=== PATIENT | female | born 1940 | race Caucasian/White ===

== ENCOUNTER 2019-10-02 13:45 | Outpatient (CLI) | payer MEDICARE, SELFPAY ==
--- NOTE | ~2019-10-02 | DEXA_ITS ---
Bone Density Report Name: Alejandra Ding Age: 79 Sex: Female Ethnicity: White Date of : 1940 Indication: postmenopausal; height loss; Referring Provider: SIDNEY*, TREV Billy Study: Bone densitometry was performed. Exam Date: October 02, 2019 Accession number: [id number] Bone Density: Region BMD T-score Z-score Classification AP Spine (L1-L4) 0.896 -1.4 1.3 Osteopenia Femoral Neck (Left) 0.601 -2.2 0.0 Osteopenia Total Hip (Left) 0.688 -2.1 -0.1 Osteopenia Total Hip Bilateral Avg 0.695 -2.0 -0.1 Osteopenia Femoral Neck (Right) 0.564 -2.6 -0.3 Osteoporosis Total Hip (Right) 0.700 -2.0 0.0 Osteopenia World Health Organization criteria for BMD impression classify patients as: Normal (T-score at or above -1.0), Osteopenia (T-score between -1.0 and -2.5), or Osteoporosis (T-score at or below -2.5). 10-year Fracture Risk: FRAX not reported because: Some T-score for Spine Total or Hip Total or Femoral Neck at or below -2.5 Clinical Information Provided by Patient: Smokes Has used the following medications: Vitamin D Patient maximum height was 62 Menopause Age: 53 No regular weight bearing exercise Drinks caffeinated beverages Onset of menses at age 13 Number of children 2 Impression: The patient has osteoporosis, based on the Right Femoral Neck T-score. The patient has risk factors, including: smoking. Discussion: INCREASED RISK OF FRACTURE. BONE DENSITY IS UNDESIRABLY LOW AT ONE OR MORE SKELETAL SITES, CONSISTENT WITH POSTMENOPAUSAL OSTEOPOROSIS. This patient's lowest T-score meets the World Health Organization's (WHO) criteria for osteoporosis at one or more sites (T-score -2.5 or below). In untreated patients, the risk of osteoporotic fracture increases approximately two-fold for each 1.0 SD decrease in T-score. Low bone density is not the only risk factor for fracture; also consider factors such as patient's age, frailty or poor health, risk of falling, risk of injury, previous osteoporotic fracture, family history of osteoporosis, cigarette smoking, low body weight, etc. Not everyone with low bone mineral density has osteoporosis; osteomalacia and other metabolic bone disorders should also be considered. Patients who have osteoporosis should be evaluated for specific diseases and conditions (secondary causes) that may cause or contribute to bone loss. The [place] [employer]ocrinologists (AACE) and National Osteoporosis Foundation (NOF) recommend pharmacologic intervention for all postmenopausal women whose T-score is in this range. The patient should follow a healthful lifestyle (good nutrition with adequate calcium and vitamin D, and appropriate weight-bearing exercise). Follow-Up: Consider a repeat BMD and Vertebral Fracture Assessment (VFA) exam in 2 years or sooner if medically
--- NOTE | ~2019-10-02 | MM_ITS ---
EXAMINATION: MM screening edith BI w yosef HISTORY: Screening mammogram TECHNIQUE: Craniocaudal and mediolateral oblique 3-D tomosynthesis images were obtained and synthetic 2-D images were generated. CAD analysis was submitted and interpreted. COMPARISON: 06/20/2017, 05/30/2013 bilateral digital screening mammogram examinations BREAST PARENCHYMAL COMPOSITION: The breasts are heterogeneously dense, which may obscure small masses . FINDINGS: A biopsy marker is present on the left. There are bilateral benign calcifications. There is no evidence of suspicious mass, calcification, or architectural distortion to suggest malignancy in either breast. There has been no suspicious interval change. IMPRESSION: 1. No mammographic evidence of malignancy. 2. Recommend routine screening mammography in one year. BI-RADS Category 2: Benign finding(s). Reviewed, dictated and finalized at location A. INFRASTRUCTURE CONSULTANT
== END 2019-10-02 13:46 | disposition home or self-care (01) ==
LOC: ANHIMG 13:48
PROVIDERS: PCP Internal Medicine; Visit Provider Internal Medicine
DX: Z12.31 Encounter for screening mammogram for malignant neoplasm of breast (principal); M81.0 Age-related osteoporosis without current pathological fracture; M85.89 Other specified disorders of bone density and structure, multiple sites
CPT/HCPCS: 77063; 77067; 77080

== ENCOUNTER 2021-05-05 02:21 | Day surgery (SDC) | payer MEDICARE, SELFPAY ==
[2021-04-22 12:49] VITALS: BMI 24.5
--- NOTE | 2021-05-04 12:18 | WPDANESEPPF ---
Anes - Initial Pre Proc Eval Procedure: Operation Date: 05/05/21 08:30 Proposed Procedures p Screening Colonoscopy - Slim Atwood MD Date/Time: 05/04/21 12:18 Surgeon: Slim Atwood MD Pre Op Diagnosis: hx of colon polyps Patient Data Age: 80 Gender: F Height: 1.52 m Weight: 57 kg Allergies Allergy/AdvReac Type Severity Reaction Status Date / Time azithromycin Allergy Mild Rash Verified 05/05/21 07:14 Penicillins Allergy Mild Diarrhea Verified 05/05/21 07:14 Home Medications Medication Instructions Recorded Confirmed Type acetaminophen-codeine 1 tablet PO BID PRN 04/22/21 05/05/21 History acyclovir 400 mg PO DAILY 04/22/21 05/05/21 History alprazolam 1 mg PO Q6-8H PRN 04/22/21 05/05/21 History doxycycline monohydrate 100 mg PO DAILY 04/22/21 05/05/21 History estradiol 1 applic VAGINAL WEEKLY 04/22/21 05/05/21 History levothyroxine [Synthroid] 100 mcg PO DAILY 04/22/21 05/05/21 History loteprednol etabonate 1 drp OPHTHALMIC (EYE) DAILY 04/22/21 05/05/21 History nitrofurantoin monohyd/m-cryst 100 mg PO DAILY 04/22/21 05/05/21 History olopatadine 1 drp OPHTHALMIC (EYE) DAILY 04/22/21 05/05/21 History pravastatin 40 mg PO DAILY 04/22/21 05/05/21 History sodium fluoride-pot nitrate 1 applic DENTAL DAILY 04/22/21 05/05/21 History Patient hx anesthesia problems: none Family hx anesthesia problems: none PMFSH Past Medical History Medical History (Updated 05/04/21 @ 15:41 by Slim Atwood MD) Diverticulosis Hypothyroidism Multiple sclerosis Osteoporosis Sarcoidosis Surgical History Surgical History (Updated 05/04/21 @ 12:19 by Saad Hernandez DO) History of appendectomy Family History Family History (Updated 04/17/14 @ 07:13 by DOCTOR UNKNOWN) Father Family history of heart disease in male family member before age 55 Mother Family history of heart disease in male family member before age 55 Other Cerebrovascular accident Diabetes mellitus Hypertension Social History Social History Years smoked: 50 Smoking status: Current every day smoker Tobacco type: cigarettes Alcohol intake: never Substance use: never Substance use type: does not use Living arrangements: with family Spiritual care concerns: No Anes - Eval Final PreProcedure Day of Procedure 05/04/21 12:18 Patient weight: normal Heart: regular rate and rhythm Lungs: clear to auscultation and normal air movement Airway: Mallampati scale class II Neurological: alert and oriented Last oral intake: >/= 8 hours ASA classification: III Emergent: no Anesthetic plan: proceed Anesthesia type and monitoring: general GIVS and standard monitoring Informed Consent: The patient's anesthetic plan and its attendant risks and benefits were discussed with the patient/family/POA. Questions were solicited and answers provided to the satisfaction of the patient/family/POA.
--- NOTE | 2021-05-04 15:40 | PM.HPGS ---
History of Present Illness History of Present Illness Consent: Risks, benefits, and alternatives have been discussed and questions answered. Patient agrees to proceed with procedure. Chief complaint: hx of colon polyps Narrative: Alejandra Ding is a 80 year old female referred for colon cancer screening. She has had polyps removed in the past Review of Systems Review of Systems: All systems reviewed & are unremarkable except as noted in HPI and below PMFSH Past Medical History Medical History Diverticulosis Hypothyroidism Multiple sclerosis Osteoporosis Sarcoidosis Surgical History Surgical History History of appendectomy Family History Family History Father Family history of heart disease in male family member before age 55 Mother Family history of heart disease in male family member before age 55 Other Cerebrovascular accident Diabetes mellitus Hypertension Social History Social History Years smoked: 50 Smoking status: Current every day smoker Tobacco type: cigarettes Alcohol intake: never Substance use: never Substance use type: does not use Living arrangements: with family Spiritual care concerns: No Meds Home Medications and Allergies Home Medications Medication Instructions Recorded Confirmed Type acetaminophen-codeine 1 tablet PO BID PRN 04/22/21 05/05/21 History acyclovir 400 mg PO DAILY 04/22/21 05/05/21 History alprazolam 1 mg PO Q6-8H PRN 04/22/21 05/05/21 History doxycycline monohydrate 100 mg PO DAILY 04/22/21 05/05/21 History estradiol 1 applic VAGINAL WEEKLY 04/22/21 05/05/21 History levothyroxine [Synthroid] 100 mcg PO DAILY 04/22/21 05/05/21 History loteprednol etabonate 1 drp OPHTHALMIC (EYE) DAILY 04/22/21 05/05/21 History nitrofurantoin monohyd/m-cryst 100 mg PO DAILY 04/22/21 05/05/21 History olopatadine 1 drp OPHTHALMIC (EYE) DAILY 04/22/21 05/05/21 History pravastatin 40 mg PO DAILY 04/22/21 05/05/21 History sodium fluoride-pot nitrate 1 applic DENTAL DAILY 04/22/21 05/05/21 History Allergies Allergy/AdvReac Type Severity Reaction Status Date / Time azithromycin Allergy Mild Rash Verified 05/05/21 07:14 Penicillins Allergy Mild Diarrhea Verified 05/05/21 07:14 Exam Resp: Auscultation: clear to auscultation bilaterally Cardio: Rate: regular rate Rhythm: regular rhythm GI: GI Palp: Yes Soft to palpation and No Tenderness to palpation present (GI) Assessment and Plan Assessment and plan (1) Colon cancer screening: Code(s): Z12.11 - Encounter for screening for malignant neoplasm of colon Status: Acute Assessment and Plan: Colonoscopy with possible biopsy or polypectomy or cautery or injection of substances.
[2021-05-05 07:15] VITALS: BP 144/81; PULSE 87; RESP 16; TEMP 35.6; O2SAT 97
[2021-05-05] MEDS: LACTATED RINGERS 1,000 ML 150 ML IV CONT (07:18)
[2021-05-05 08:15] VITALS: BP 101/46; PULSE 77; RESP 20; O2SAT 99
[2021-05-05 08:25] VITALS: BP 126/54; PULSE 69; RESP 18; O2SAT 99
[2021-05-05 08:35] VITALS: BP 124/65; PULSE 67; RESP 18; O2SAT 100
== END 2021-05-05 08:51 | disposition home or self-care (01) ==
PROVIDERS: PCP Internal Medicine; Visit Provider Internal Medicine Gastroenterology
PROC: 0DJD8ZZ Inspection of Lower Intestinal Tract, Via Natural or Artificial Opening Endoscopic (ICD-10-PCS; CPT 45378; principal; 2021-05-05 08:30)
DX: Z12.11 Encounter for screening for malignant neoplasm of colon (principal); K57.30 Diverticulosis of large intestine without perforation or abscess without bleeding; Z86.010 Personal history of colon polyps; G35 Multiple sclerosis; E03.9 Hypothyroidism, unspecified; M81.0 Age-related osteoporosis without current pathological fracture; D86.9 Sarcoidosis, unspecified; F17.210 Nicotine dependence, cigarettes, uncomplicated
CPT/HCPCS: G0105; J2704; J7120

== ENCOUNTER 2021-08-25 17:17 | Emergency (ER) | payer MEDICARE, SELFPAY ==
--- NOTE | ~2021-08-25 | XR_ITS ---
EXAMINATION: XR hand LT min 3V EXAM DATE: 08/25/2021 19:09 INDICATION: Initial encounter following injury, with pain of the left hand. TECHNIQUE: Left hand frontal, lateral and oblique projections obtained and reviewed. There is no porfirio or study for comparison. FINDINGS: Left metacarpal bones are unremarkable. Possible acute closed posttraumatic nondisplaced fracture at the dorsal aspect of the left radial distal metaphysis. This finding has been indicated, marked on the examination for review, clinical correlation. There is some soft tissue swelling over t he wrist posteriorly. IMPRESSION: Possible nondisplaced left distal radial metaphyseal fracture. Clinical correlation. Reviewed, dictated and finalized at location A. ER AND DRIER IMPRESSION: Possible nondisplaced left distal radial metaphyseal fracture. Cli nical correlation.
[2021-08-25 18:55] VITALS: BP 180/75; PULSE 85; RESP 16; TEMP 35.9; O2SAT 98
[2021-08-25 18:56] VITALS: BP 180/75; PULSE 85; RESP 16; TEMP 35.9; O2SAT 98
--- NOTE | 2021-08-25 18:59 | ED.UPPEXIN ---
HPI - Extremity Injury (Upper) General Chief Complaint: Extremity Injury, Upper Stated Complaint: left wrist pain Time Seen by Provider: 08/25/21 18:59 Source: patient Mode of arrival: ambulatory Limitations: no limitations History of Present Illness HPI narrative: Alejandra Ding is a 81 yo female with history of history of Lynn's, hypothyroid, sarcoidosis, chronic back pain, who [facility] after second fall within the last 10 hours, she does not have any history of this kind of falls. Patient has left wrist injury which appears to be a large hematoma and x-ray has been shot of that wrist. Blood pressure is unusually high for her other than that she appears to not be having any weakness any neurological deficit no asymmetry is an O x4 Related Data Home Medications Medication Instructions Recorded Confirmed acetaminophen-codeine 1 tablet PO BID PRN 04/22/21 05/05/21 acyclovir 400 mg PO DAILY 04/22/21 05/05/21 alprazolam 1 mg PO Q6-8H PRN 04/22/21 05/05/21 estradiol 1 applic VAGINAL WEEKLY 04/22/21 05/05/21 levothyroxine [Synthroid] 100 mcg PO DAILY 04/22/21 05/05/21 loteprednol etabonate 1 drp OPHTHALMIC (EYE) DAILY 04/22/21 05/05/21 nitrofurantoin monohyd/m-cryst 100 mg PO DAILY 04/22/21 05/05/21 olopatadine 1 drp OPHTHALMIC (EYE) DAILY 04/22/21 05/05/21 pravastatin 40 mg PO DAILY 04/22/21 05/05/21 sodium fluoride-pot nitrate 1 applic DENTAL DAILY 04/22/21 05/05/21 lifitegrast [Xiidra] drp 08/25/21 sulfamethoxazole-trimethoprim tablet 08/25/21 Allergies Allergy/AdvReac Type Severity Reaction Status Date / Time azithromycin Allergy Mild Rash Verified 05/05/21 07:14 Penicillins Allergy Mild Diarrhea Verified 05/05/21 07:14 Review of Systems Review of Systems: CONSTITUTIONAL: Denies fever, chills, sweats. EYES: Denies visual changes, redness, discharge. ENT: Denies rhinorrhea, congestion, sore throat, otalgia. CARDIOVASCULAR: Denies chest pain, palpitations, edema. RESPIRATORY: Denies dyspnea, wheezing, cough GASTROINTESTINAL: Denies abdominal pain, nausea, vomiting, diarrhea. GENITOURINARY: Denies dysuria, hematuria, abnormal discharge SKIN: Denies rash or itching. NEUROLOGIC: Denies numbness, or focal weakness. PSYCHIATRIC: Denies anxiety or depression. 2 falls today PMFSH Past Medical History Medical History Diverticulosis Hypothyroidism Multiple sclerosis Osteoporosis Sarcoidosis Surgical History Surgical History History of appendectomy Family History Family History Father Family history of heart disease in male family member before age 55 Mother Family history of heart disease in male family member before age 55 Other Cerebrovascular accident Diabetes mellitus Hypertension Social History Social History Years smoked: 50 Smoking status: Current every day smoker Tobacco type: cigarettes Alcohol intake: never Substance use: never Substance use type: does not use Spiritual care concerns: No Comments At time of signature, I agree with nursing past medical, surgical, social and family history. There is no relevant family history pertinent to the presenting complaint. Exam Narrative: GENERAL: This is a well-nourished, well-developed patient, in mild distress. HEAD: normocephalic, atraumatic. EYES: PERRL. Sclera clear/white. Vision is grossly intact. EARS: External ears normal, Hearing grossly intact. NOSE: External nose normal without nasal discharge, nares without redness, no rhinorrhea. THROAT: Mucous membranes moist, NECK: Neck supple, non-tender CARDIOVASCULAR: Regular rate and rhythm without murmurs, gallops, or rubs. RESPIRATORY: Clear to auscultation. Breath sounds equal bilaterally. No wheezes, rales, or rhonchi. GASTROINTESTINAL: A
== END 2021-08-25 19:35 | disposition short-term general hospital (02) ==
PROVIDERS: Emergency Provider Nurse Practitioner; PCP Internal Medicine
DX: S69.92XA Unspecified injury of left wrist, hand and finger(s), initial encounter (principal); W19.XXXA Unspecified fall, initial encounter; I10 Essential (primary) hypertension; E03.9 Hypothyroidism, unspecified; G35 Multiple sclerosis; M81.0 Age-related osteoporosis without current pathological fracture; D86.9 Sarcoidosis, unspecified; E06.3 Autoimmune thyroiditis; F17.210 Nicotine dependence, cigarettes, uncomplicated
CPT/HCPCS: 73130; 99213; G0463

== ENCOUNTER 2021-08-25 20:13 | Emergency (ER) | payer MEDICARE, SELFPAY ==
--- NOTE | ~2021-08-25 | CT_ITS ---
EXAMINATION: CT brain wo con DATE: 08/26/2021 03:04 INDICATION: Dizziness. 2 falls today. TECHNIQUE: Computed tomography (CT) of the head was performed without intravenous contrast. The mA wa s adjusted according to patient size. Iterative reconstruction technique was employed. Exam dose: 75 6.67 mGy-cm total exam DLP. COMPARISON: 02/08/2016 MRI brain/brainstem FINDINGS: There is nonspecific prominent diminished attenuation of the periventricular and to a lesse r extent subcortical white matter. No intracranial mass lesion or hemorrhage, midline shift or mass effect or subdural or epidural hemat tori is detected. Bilateral carotid siphon internal carotid artery calcification. There is moderate cerebral volume loss. The orbits are unremarkable. No fracture or bone destruction of the cranial vault. There is moderate mucoperiosteal thickening of the right maxillary sinus and patchy opacification of bilateral ethmoid air cells. There is mild soft tissue thickening of both sphenoid sinuses. Normal development and aeration of the mastoid air cells bilaterally. No fracture or bone destruction of the cranial vault. IMPRESSION: Cerebral atherosclerosis Nonspecific diminished attenuation of the periventricular and to lesser extent subcortical white tatiana er Moderate cerebral volume loss No acute intracranial finding or skull fracture Reviewed, dictated and finalized at Location [facility]. Reviewed, dictated and finalized at location A. STOCK ASSOCIATE IMPRESSION: Cerebral atherosclerosis Nonspecific diminished attenuation of the periventricular and to lesser extent subcortical white matter Moderate cerebral volume loss No acute intracranial finding or skull fracture
[2021-08-25 20:52] VITALS: BP 182/70; PULSE 90; RESP 18; TEMP 36.3; O2SAT 98
[2021-08-25 22:29] VITALS: BP 157/96; PULSE 82; O2SAT 96
[2021-08-26 02:06] VITALS: BP 162/87; PULSE 92; O2SAT 94
--- NOTE | 2021-08-26 02:41 | ECG_ITS ---
Measurements Intervals [place] Rate: 86 P: 72 CO: 115 QRS: -5 QRSD: 115 T: -15 QT: 364 QTc: 437 Interpretive Statements SINUS RHYTHM WITH SHORT CO INTERVAL RIGHT BUNDLE BRANCH BLOCK T WAVE ABNORMALITY IN INFERIOR LEADS- CONSIDER ISCHEMIA BASELINE ARTIFACT- I, II, III, AVR, AVL, AVF, V2 ABNORMAL ECG Electronically Signed On 08-26-2021 6:27:59 MINUTE CLERK FOR BASIC TRAFFIC by Jewel Rangel D.O.
[2021-08-26 02:44] VITALS: BP 158/62; PULSE 87; RESP 14; O2SAT 100
--- NOTE | 2021-08-26 02:45 | ED.DIZZY ---
HPI - Dizziness General Chief Complaint: Dizziness Stated Complaint: falls dizziness Time Seen by Provider: 08/26/21 02:41 Source: patient Mode of arrival: ambulatory Limitations: no limitations History of Present Illness HPI Narrative: Patient is an 81-year-old female complaining of dizziness, described as being lightheaded, worse with ambulation and head movement started today but claims that she is feeling better now and her dizziness has resolved. Patient states that she felt dizzy this afternoon caused her to fall twice, denies any LOC, was able to stand up and ambulate after the fall. Patient states that she went to an urgent care earlier this afternoon after falling, had her left hand x-rayed and they told me I just bruised it and that I did not break it . Patient denies any speech or visual disturbance, headache, focal weakness or numbness, chest pain, shortness of breath, abdominal pain, nausea, vomiting, fever or chills. Related Data Home Medications Medication Instructions Recorded Confirmed acetaminophen-codeine 1 tablet PO BID PRN 04/22/21 05/05/21 acyclovir 400 mg PO DAILY 04/22/21 05/05/21 alprazolam 1 mg PO Q6-8H PRN 04/22/21 05/05/21 estradiol 1 applic VAGINAL WEEKLY 04/22/21 05/05/21 levothyroxine [Synthroid] 100 mcg PO DAILY 04/22/21 05/05/21 loteprednol etabonate 1 drp OPHTHALMIC (EYE) DAILY 04/22/21 05/05/21 nitrofurantoin monohyd/m-cryst 100 mg PO DAILY 04/22/21 05/05/21 olopatadine 1 drp OPHTHALMIC (EYE) DAILY 04/22/21 05/05/21 pravastatin 40 mg PO DAILY 04/22/21 05/05/21 sodium fluoride-pot nitrate 1 applic DENTAL DAILY 04/22/21 05/05/21 lifitegrast [Xiidra] drp 08/25/21 sulfamethoxazole-trimethoprim tablet 08/25/21 Allergies Allergy/AdvReac Type Severity Reaction Status Date / Time azithromycin Allergy Mild Rash Verified 08/26/21 02:39 Penicillins Allergy Mild Diarrhea Verified 08/26/21 02:39 Review of Systems Review of Systems: All systems reviewed & are unremarkable except as noted in HPI and below Constitutional: Constitutional: Denies body ache(s), Denies chills, Denies excessive sweating, Denies fatigue, Denies fever(s), Denies headache(s), Denies lethargy, Denies malaise, Denies weakness and Denies weight loss Eyes: Eyes: Denies blurry vision, Denies change in vision and Denies loss of vision ENT: Denies dizziness, Denies ear discharge, Denies headache(s), Denies lip swelling, Denies epistaxis, Denies nasal congestion, Denies neck pain, Denies throat swelling and Denies tongue swelling Cardiovascular: Cardiovascular: Denies chest pain, Denies chest pain at rest, Denies chest pain with activity, Denies diaphoresis, Denies rapid heart rate, Denies edema, Denies irregular heart rhythm, Denies lightheadedness, Denies palpitations, Denies dyspnea and Denies dyspnea on exertion Respiratory: Respiratory: Denies chest congestion, Denies cough, Denies hemoptysis, Denies dyspnea and Denies dyspnea on exertion Gastrointestinal: Gastrointestinal: Denies abdominal pain, Denies melena, Denies hematochezia, Denies diarrhea, Denies nausea, Denies vomiting and Denies hematemesis Musculoskeletal: Musculoskeletal: Denies abnormal gait, Denies neck pain and Denies numbness Comments: is intact Neurologic: Denies Abnormal speech present, Denies abnormal gait, Denies confusion, Denies headache(s), Denies focal weakness, Denies loss of vision, Denies numbness, Denies Other visual disturbances, Denies Sensory deficit (Neuro) and Denies weakness Psychiatric: Psychiatric: Denies confusion, Denies depression, Denies auditory hallucinations, Denies homicidal ideation and Denies suicidal ideation Endocrine: Endocrine: Denies cold intolerance, Denies excessive sweating, Denies fatigue, Denies heat intolerance and Denies palpitations Hematologic/Lymphatic: Hematologic/Lymphatic: Denies easy bleeding and Denies easy bruising Allergic/Immunologic: Allergic/Immunologic: Denies lip swelling, Denies throat swelling and Denies tong
[2021-08-26 03:37] LABS: Basophils Percent Auto 0.5 % (0.2-1.2); Eosinophils Percent Auto 0.3 % (0-4.4); Hematocrit 39.8 % (37.0-47.0); Hemoglobin 13.3 g/dL (12.0-15.0); Immature Granulocyte Absolute 0.02 K/mm3 (0.00-0.031); Immature Granulocyte Percent A 0.3 % (0-0.5); Lymphocytes Percent Auto 16.7 % (18.3-44.2); Mean Corpuscular HGB Conc 33.4 g/dl (32-36); Mean Corpuscular Hemoglobin 32.1 pg (26-34); Mean Corpuscular Volume 96.1 fl (80-100); Mean Platelet Volume 11.1 fl (7.4-10.4); Monocytes Absolute Auto 0.7 K/mm3 (0.1-0.6); Monocytes Percent Auto 10.4 % (2.6-8.5); Neutrophils Absolute Auto 4.7 K/mm3 (1.3-6.7); Neutrophils Percent Auto 71.8 % (45.5-73.1); Platelet Count Result 194 k/mm3 (150-375); Red Blood Count 4.14 M/mm3 (4.2-5.4); White Blood Count 6.6 K/mm3 (4.5-10.0)
[2021-08-26 03:48] LABS: Anion Gap 12 mmol/L (8-16); Blood Urea Nitrogen 22 mg/dL (7-17); Calcium 9.2 mg/dL (8.4-10.2); Carbon Dioxide 23 mmol/L (22-30); Chloride 99 mmol/L (98-107); Estimated CRCL calculation 24 ml/min; Estimated Glomerular Filt Rate 43; Glucose 111 mg/dL (65-110); Potassium 4.5 mmol/L (3.4-5.0); Sodium 134 mmol/L (137-145)
[2021-08-26] MEDS: HYDROcodone/acetaminophen (*CRX) 5-325 MG TABLET 1 TAB PO (03:57)
[2021-08-26 04:00] LABS: Troponin I < 0.012 ng/mL (0.000-0.034)
[2021-08-26 04:25] LABS: Add Urine Microscopic? YES; Appearance Urine Clear (Clear); Bacteria Urine Trace /hpf; Bilirubin Urine Negative (Negative); Blood Urine Negative (Negative); Color Urine Yellow (Yellow); Glucose Urine UA Negative (Negative); Ketones Urine Trace mg/dL (Negative); Leukocyte Esterase Ur Negative LEU/UL (Negative); Mucus Urine Rare /lpf; Nitrate Urine Negative (Negative); Protein Urine 1+ mg/dL (Negative); RBC Urine 0-2 /hpf (0-2); Specific Grav Ur 1.012 (1.001-1.035); Squamous Epithelial Cell Urine Few /hpf (Few); Urobilinogen Urine Negative mg/dL (<2.0); WBC Urine 0-3 /hpf
[2021-08-26 05:34] LABS: EDCOVIDSCREEN Positive (Negative)
[2021-08-26 06:18] VITALS: BP 158/67; PULSE 79; RESP 14; O2SAT 98
[2021-08-26 07:40] VITALS: BP 159/69; PULSE 80; RESP 16; O2SAT 98
== END 2021-08-26 07:42 | disposition short-term general hospital (02) ==
PROVIDERS: Emergency Provider Emergency Medicine; PCP Internal Medicine
DX: U07.1 COVID-19 (principal); S06.5X0A Traumatic subdural hemorrhage without loss of consciousness, initial encounter; F17.210 Nicotine dependence, cigarettes, uncomplicated; K57.90 Diverticulosis of intestine, part unspecified, without perforation or abscess without bleeding; E03.9 Hypothyroidism, unspecified; G35 Multiple sclerosis; W19.XXXA Unspecified fall, initial encounter
CPT/HCPCS: 36415; 70450; 73130; 80048; 81001; 84484; 85025; 87426; 93005; 99285; A9270; C9803

== ENCOUNTER 2021-10-14 11:57 | Outpatient (CLI) | payer MEDICARE, SELFPAY ==
--- NOTE | ~2021-10-14 | PE_ITS ---
EXAMINATION: PET skull to mid thigh DATE: 10/14/2021 14:12 INDICATION: Lung mass. TECHNIQUE: Blood glucose level was 109 mg/dL. 10.861 mCi of 18-fluorodeoxyglucose (18-FDG) was admini stered i.v. Low dose computed tomography (CT) images were acquired from the base of the brain to the proximal thighs for attenuation correction and anatomic localization. Automated exposure control was employed. Dose-length product (DLP) was 292 mGy-cm. Positron emission tomography (PET) images were ac quired in the same distribution. COMPARISON: Chest CT 01/19/2012, neck CT 09/28/12 FINDINGS: Head/neck: There is a 1.8 x 1.3 cm mass in deep right parotid gland with maximum SUV of 5.3. There is increased activity in the pharynx without abnormal CT correlate, likely physiologic. There are no pa thologically enlarged lymph nodes. There is mucosal thickening in the paranasal sinuses. Chest: There is mild scarring at the lung apices. There is a 12 mm nodule in right upper lobe with ma ximum SUV of 2.1. A calcified right lung nodule is consistent with old granulomatous disease. There i s mild atelectasis bilaterally. There is a staple line in left lower lobe. There is mild scarring in the lower lungs. No pleural effusion. Cardiomegaly is noted. There are coronary artery calcifications . No pericardial effusion. There are no pathologically enlarged lymph nodes. Abdomen/pelvis/proximal thighs: The liver, gallbladder, spleen, pancreas, adrenal glands, and kidneys are normal. There are no dilated loops of bowel. There is diverticulosis of the colon without eviden ce of diverticulitis. There are no pathologically enlarged lymph nodes. There is no free intraperiton eal fluid. There is no osseous malignancy. IMPRESSION: 1. 12 mm nodule in right lung upper lobe with maximum SUV of 2.1, increased from 6 mm on 01/19/2012. T he differential diagnosis includes inflammation/infection and low-grade malignancy. Consider CT-guide d biopsy. 2. 1.8 x 1.3 cm mass in deep right parotid gland with increased activity, stable from 09/28/2012, likel y benign. The differential diagnosis includes benign mixed tumor and Warthin tumor. Reviewed, dictated and finalized at location A. NG MACHINE FEEDER IMPRESSION: 1. 12 mm nodule in right lung upper lobe with maximum SUV of 2.1, increased fro m 6 mm on 01/19/2012. The differential diagnosis includes inflammation/infection and low-grade malignancy. Consider CT-guided biopsy. 2. 1.8 x 1.3 cm mass in deep right parotid gland with increased activity, stabl e from 09/28/2012, likely benign. The differential diagnosis includes benign mixe d tumor and Warthin tumor.
[2021-10-14 12:26] LABS: Glucose Point of Care 109 mg/dl (65-105)
== END 2021-10-14 11:58 | disposition home or self-care (01) ==
PROVIDERS: PCP Internal Medicine; Visit Provider Internal Medicine
DX: R91.8 Other nonspecific abnormal finding of lung field (principal); K11.8 Other diseases of salivary glands
CPT/HCPCS: 78815; A9552

== ENCOUNTER 2022-04-23 21:18 | Emergency (ER) | payer MEDICARE, SELFPAY ==
[2022-04-23] VITALS (7 sets, daily range): BP systolic 171–185; BP diastolic 86–87; PULSE 73–88; RESP 16–25; TEMP 36.5; O2SAT 94–100
--- NOTE | ~2022-04-23 | CT_ITS ---
EXAMINATION: CTA brain carotid DATE: 04/23/2022 23:24 INDICATION: Left leg weakness. Dysarthria. TECHNIQUE: Computed tomographic angiography (CTA) of the head was performed without and with 100 mL O mnipaque-350 intravenous contrast. CTA of the neck was performed with intravenous contrast. Automated exposure control and iterative reconstruction technique were employed. The dose-length product was 1 579.66 mGy-cm. Maximum intensity projection and volume rendered 3D-reconstructions were created by yeni curtis technologist on a separate workstation. COMPARISON: Head CT 08/26/2021, neck CT 09/28/2012, PET/CT 10/14/21 FINDINGS: HEAD CTA: There are scattered areas of low attenuation in the cerebral white matter. There is no intr acranial hemorrhage, acute infarction, or abnormal intracranial mass lesion. There is an old infarct in left thalamus. The ventricles are normal in size. There is mucosal thickening in the paranasal sin uses. There are likely changes of ocular lens replacement surgeries. The mastoid air cells are normal . Partially visualized is a 1.8 cm hyperdense, hyperenhancing mass in right parotid gland. The verteb ral arteries are codominant. There is no significant stenosis of basilar artery or the posterior cere bral arteries. There is no significant stenosis of the intracranial internal carotid arteries or ante rior cerebral arteries. There is thrombus and severe stenosis in the M2 segment of left middle cerebr al artery. Anterior communicating artery is normal. The posterior communicating arteries are normal. There is no aneurysm. NECK CTA: There is mild scarring at the lung apices. There is mild emphysema. There is a 12 mm nodule in right lung upper lobe. There are no pathologically enlarged lymph nodes. There is no significant stenosis of the vertebral arteries. There is mild plaque in the proximal internal carotid arteries. T here is 0% stenosis of the proximal right internal carotid artery relative to normal distal artery donnie men diameter (NASCET criteria). There is 0% stenosis of the proximal left internal carotid artery rel ative to normal distal artery lumen diameter. There is moderate cervical spondylosis. IMPRESSION: 1. Thrombus in left M2 middle cerebral artery. 2. 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 3. Extensive nonspecific cerebral white matter disease, which likely represents chronic small vessel ischemic disease. 4. 0% stenosis of the proximal internal carotid arteries relative to normal distal artery lumen diame ters (NASCET criteria). 5. 12 mm nodule in right lung upper lobe suspicious for primary bronchogenic carcinoma, stable from . 6. 1.8 cm right parotid mass, stable from 09/28/2012, which may be a benign mixed tumor or Warthin tumo r. Reviewed, dictated and finalized at location A. IMPRESSION: 1. Thrombus in left M2 middle cerebral artery. 2. 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 3. Extensive nonspecific cerebral white matter disease, which likely represents chronic small vessel ischemic disease. 4. 0% stenosis of the proximal internal carotid arteries relative to normal dis ladi artery lumen diameters (NASCET criteria). 5. 12 mm nodule in right lung upper lobe suspicious for primary bronchogenic ca rcinoma, stable from 10/14/21. 6. 1.8 cm right parotid mass, stable from 09/28/2012, which may be a benign mixed tumor or Warthin tumor.
--- NOTE | ~2022-04-23 | XR_ITS ---
EXAMINATION: XR chest 1V portable DATE: 04/23/2022 22:32 INDICATION: Stroke. TECHNIQUE: A single frontal view of the chest was obtained. COMPARISON: Chest 2 views 06/14/2011, PET CT 10/14/2021 FINDINGS: There is mild atelectasis versus scarring in the mid and lower lung zones. No pleural effus ion or pneumothorax. The heart size is normal. IMPRESSION: 1. Mild atelectasis versus scarring in the mid and lower lung zones. Reviewed, dictated and finalized at location A.
--- NOTE | 2022-04-23 21:43 | ECG_ITS ---
Measurements Intervals [place] Rate: 79 P: 53 UT: 144 QRS: -14 QRSD: 126 T: -17 QT: 385 QTc: 443 Interpretive Statements SINUS RHYTHM RIGHT BUNDLE BRANCH BLOCK BASELINE ARTIFACT- I, II, III, AVR, AVL, AVF, V4-V6 ABNORMAL ECG COMPARED TO ECG 08/26/2021 03:27:35 NO SIGNIFICANT CHANGES Electronically Signed On 04-24-2022 8:30:06 CDT by Jewel Rangel D.O.
[2022-04-23 22:17] LABS: Basophils Absolute Auto 0.1 K/mm3 (0.0-0.1); Basophils Percent Auto 0.6 % (0.2-1.2); Eosinophils Absolute Auto 0.2 K/mm3 (0-0.3); Eosinophils Percent Auto 2.7 % (0-4.4); Hematocrit 39.5 % (37.0-47.0); Hemoglobin 12.9 g/dL (12.0-15.0); Immature Granulocyte Absolute 0.02 K/mm3 (0.00-0.031); Immature Granulocyte Percent A 0.2 % (0-0.5); Lymphocytes Absolute Auto 1.72 K/mm3 (0.9-3.2); Lymphocytes Percent Auto 20.9 % (18.3-44.2); Mean Corpuscular HGB Conc 32.7 g/dl (32-36); Mean Corpuscular Hemoglobin 31.6 pg (26-34); Mean Corpuscular Volume 96.8 fl (80-100); Mean Platelet Volume 11.8 fl (7.4-10.4); Monocytes Absolute Auto 0.7 K/mm3 (0.1-0.6); Monocytes Percent Auto 8.5 % (2.6-8.5); Neutrophils Absolute Auto 5.5 K/mm3 (1.3-6.7); Neutrophils Percent Auto 67.1 % (45.5-73.1); Platelet Count Result 214 k/mm3 (150-375); Red Blood Count 4.08 M/mm3 (4.2-5.4); Red Cell Distribution Width 13.3 % (11.5-14.5); White Blood Count 8.2 K/mm3 (4.5-10.0)
[2022-04-23 22:26] LABS: Alanine Aminotransferase 14 U/L (6-35); Albumin Level 4.1 g/dL (3.5-5.1); Alkaline Phosphatase 60 U/L (38-126); Anion Gap 5 mmol/L (8-16); Aspartate Amino Transferase 34 U/L (14-36); Bilirubin,Total 0.4 mg/dL (0.2-1.3); Blood Urea Nitrogen 24 mg/dL (7-17); Calcium 9.3 mg/dL (8.4-10.2); Carbon Dioxide 29 mmol/L (22-30); Chloride 105 mmol/L (98-107); Estimated Glomerular Filt Rate 60; Glucose 112 mg/dL (65-110); Potassium 3.7 mmol/L (3.4-5.0); Sodium 139 mmol/L (137-145)
[2022-04-23 22:29] LABS: Prothrombin Time 12.9 Seconds (11.1-14.7)
[2022-04-23 22:30] LABS: Partial Thromboplastin Time 22.6 SECONDS (22.3-36.8)
[2022-04-23 22:38] LABS: Troponin I 0.025 ng/mL (0.000-0.034)
--- NOTE | 2022-04-23 22:57 | PC.NURSE ---
Transferred care to DARINEL Serra
[2022-04-23 23:13] LABS: Appearance Urine Clear (Clear); Bilirubin Urine Negative (Negative); Blood Urine Trace-lysed (Negative); Color Urine Yellow (Yellow); Glucose Urine UA Negative (Negative); Ketones Urine Negative (Negative); Leukocyte Esterase Ur Negative LEU/UL (Negative); Nitrate Urine Negative (Negative); Protein Urine 2+ mg/dL (Negative); Specific Grav Ur 1.015 (1.001-1.035); Urobilinogen Urine 0.2 mg/dL (<2.0); pH Urine 7.5 (5.0-9.0)
[2022-04-23 23:27] LABS: Add Urine Microscopic? YES; RBC Urine 0-2 /hpf (0-2); WBC Urine 0-3 /hpf
[2022-04-23] MEDS: ASPIRIN 81 MG CHEWABLE TABLET 324 MG PO (23:59)
[2022-04-24] VITALS: PULSE 73; RESP 20; O2SAT 96
[2022-04-24 00:16] VITALS: PULSE 72; RESP 18; O2SAT 94
--- NOTE | 2022-04-24 00:44 | ED.NEUROSD ---
HPI - Neuro Symptoms/Deficit General Chief Complaint: Neuro Symptoms/Deficit Stated Complaint: slurred speech Time Seen by Provider: 04/23/22 21:37 History of Present Illness HPI Narrative: Patient is an 81-year-old female who presents ER with slurred speech. Symptoms occurred at 1:30 PM according to her . She then took a nap and woke up at 4:30 PM and her speech was worsened. No new upper or lower extremity weakness. No history of CVA. No recent trauma. Denies any additional complaints. Patient has some chronic left lower extremity weakness for which she uses a cane for. There is been no change. Related Data Home Medications Medication Instructions Recorded Confirmed acetaminophen 300 mg-codeine 30 mg 1 tablet PO BID PRN Pain 04/22/21 05/05/21 tablet acyclovir 400 mg tablet 400 mg PO DAILY 04/22/21 05/05/21 alprazolam 1 mg tablet 1 mg PO Q6-8H PRN Anxiety 04/22/21 05/05/21 estradiol 0.01% (0.1 mg/gram) 1 applic vaginal WEEKLY 04/22/21 05/05/21 vaginal cream levothyroxine 100 mcg tablet 100 mcg PO DAILY 04/22/21 05/05/21 (Synthroid) loteprednol etabonate 0.5 % eye 1 drp ophthalmic (eye) DAILY 04/22/21 05/05/21 drops,suspension nitrofurantoin 100 mg PO DAILY 04/22/21 05/05/21 monohydrate/macrocrystals 100 mg capsule olopatadine 0.1 % eye drops 1 drp ophthalmic (eye) DAILY 04/22/21 05/05/21 pravastatin 40 mg tablet 40 mg PO DAILY 04/22/21 05/05/21 sodium fluoride 1.1 %-potassium 1 applic dental DAILY 04/22/21 05/05/21 nitrate 5 % dental paste lifitegrast 5 % eye drops in a drp 08/25/21 dropperette (Xiidra) sulfamethoxazole 800 tablet 08/25/21 mg-trimethoprim 160 mg tablet Allergies Allergy/AdvReac Type Severity Reaction Status Date / Time azithromycin Allergy Mild Rash Verified 08/26/21 02:39 Penicillins Allergy Mild Diarrhea Verified 08/26/21 02:39 Review of Systems Review of Systems: All systems reviewed & are unremarkable except as noted in HPI and below Constitutional: Constitutional: Denies chills and Denies fever(s) ENT: Denies nasal congestion and Denies sore throat Cardiovascular: Cardiovascular: Denies chest pain, Denies rapid heart rate and Denies radiating jaw, neck or arm pain Respiratory: Respiratory: Denies cough, Denies dyspnea and Denies wheezing Gastrointestinal: Gastrointestinal: Denies abdominal pain, Denies nausea and Denies vomiting Neurologic: Denies syncope, Denies headache(s), Denies focal weakness and Denies numbness Comments: Dysarthria PMFSH Past Medical History Medical History Diverticulosis Hypothyroidism Multiple sclerosis Osteoporosis Sarcoidosis Surgical History Surgical History History of appendectomy Family History Family History Father Family history of heart disease in male family member before age 55 Mother Family history of heart disease in male family member before age 55 Other Cerebrovascular accident Diabetes mellitus Hypertension Social History Social History Years smoked: 50 Smoking status: Current every day smoker Tobacco type: cigarettes Alcohol intake: never Substance use: never Substance use type: does not use Spiritual care concerns: No Exam Narrative: GENERAL: Well-appearing, well-nourished, and in no acute distress. HEAD: Normocephalic, atraumatic. EYES: PERRL and EOMI. ENT: Mucous membranes moist. CHEST: Clear to auscultation. No respiratory distress. HEART: Regular rate and rhythm. Normal peripheral pulses. ABDOMEN: Soft, nontender, nondistended. EXTREMITIES: Normal range of motion. No edema. SKIN: Warm, dry, no rash. NEURO: Dysarthria noted. I believe there is also some expressive issues as well. No upper or lower extremity drift. Normal finger-nose testin
[2022-04-24 00:47] VITALS: PULSE 78; RESP 21; O2SAT 96
[2022-04-24 00:55] VITALS: BP 171/84; PULSE 83; RESP 20; TEMP 36.7; O2SAT 96
[2022-04-24 01:11] VITALS: BP 160/74; PULSE 79; RESP 16; O2SAT 97
== END 2022-04-24 01:33 | disposition short-term general hospital (02) ==
PROVIDERS: Emergency Provider Emergency Medicine; PCP Internal Medicine
DX: P91.829 Neonatal cerebral infarction, unspecified side (principal); R29.702 NIHSS score 2; F17.210 Nicotine dependence, cigarettes, uncomplicated; E03.9 Hypothyroidism, unspecified; M81.0 Age-related osteoporosis without current pathological fracture; G35 Multiple sclerosis; D86.9 Sarcoidosis, unspecified
CPT/HCPCS: 36415; 70496; 70498; 71045; 80053; 81001; 84484; 85025; 85610; 85730; 93005; 99285; A9270; Q9967

== ENCOUNTER 2023-03-20 20:25 | Emergency (ER) | payer MEDICARE, SELFPAY ==
--- NOTE | ~2023-03-20 | CT_ITS ---
EXAMINATION: CT chest abdomen pelvis w con DATE: 03/20/2023 22:13 INDICATION: lung mass, transaminitis . TECHNIQUE: Computed tomography (CT) of the chest, abdomen, and pelvis was performed with 100 mL Omnip aque-350 intravenous contrast. Automated exposure control and iterative reconstruction technique were employed. The dose-length product was 444.00 mGy-cm. COMPARISON: X-ray chest, same date; PET/CT 10/14/2021 FINDINGS: CHEST: Thoracic aorta: No significant dilation. Mild intramural thrombus and calcification in the descending aorta. Lung parenchyma and airways: Bibasilar scar. Stable mildly lobulated 12 mm right upper lobe nodule. Thoracic inlet, axillae and chest wall: No thyroid or soft tissue mass. No axillary lymphadenopathy. Mediastinum: No mass. Enlarged pretracheal and right hilar lymph nodes. Heart and pericardium: Normal heart size. No pericardial effusion. Coronary artery calcifications: Mild. Pleura: No effusion or mass. Thoracic bones: No acute osseous finding in the chest. ABDOMEN/PELVIS: Liver: Diffuse fatty infiltration. Biliary/Gallbladder: Gallbladder is normal. No bile duct dilation. Pancreas: No mass or duct dilation. Spleen: Normal. Adrenals:No mass. Kidneys: Mild cortical thinning. Bilateral simple cysts. No suspicious mass, stone, or hydronephrosis . GI tract: Moderate distal esophageal and gastric wall edema. Uncomplicated duodenal diverticulum. Dif fuse mild colonic wall edema. No small or large bowel dilation. Normal appendix. Diverticulosis witho ut diverticulitis. Mesentery/Peritoneum: No ascites, mass, or free air. Retroperitoneum: No mass Atherosclerotic abdominal aortic and/or arterial calcifications. Pelvis: Pelvic organs are within normal limits. 1.6 cm left ovarian cyst. Soft Tissues: Soft tissues and body wall unremarkable. Abdominopelvic bones: No acute osseous finding in the abdomen/pelvis. IMPRESSION: Stable 12 mm right upper lobe pulmonary nodule. Left hilar and mediastinal lymphadenopathy. Esophagitis/gastritis. Hepatic steatosis. Mild colitis, likely on an infectious, inflammatory, or ischemic basis. Reviewed, dictated and finalized at location K.
--- NOTE | ~2023-03-20 | XR_ITS ---
EXAMINATION: XR chest 2V Exam Date/Time: 03/20/2023 20:52 CDT HISTORY: weakness, elev bp, dizziness; smoker Comparison: 04/23/2022, 06/14/2011; PET/CT 10/14/2021;. RESULT: Lines, tubes, and devices: Loop recorder. Lungs and pleura: Senescent change. Linear bilateral scar/atelectasis. No focal consolidation, pneum othorax, or effusion. Redemonstration of the 12 mm right upper lobe pulmonary nodule. Cardiomediastinal silhouette: Stable. Other: No acute osseous or upper abdominal finding. IMPRESSION: No acute cardiopulmonary process. 12 mm right upper lobe pulmonary nodule, likely representing a granuloma or hamartoma or other infect ious/inflammatory nodule, however a low-grade malignancy is not excluded. As mentioned in the prior P ET/CT, consideration could be given to CT-guided biopsy depending on the patient's clinical condition and wishes. Reviewed, dictated and finalized at location K. IMPRESSION: No acute cardiopulmonary process. 12 mm right upper lobe pulmonary nodule, likely representing a granuloma or ham artoma or other infectious/inflammatory nodule, however a low-grade malignancy is not excluded. As mentioned in the prior PET/CT, consideration could be given to CT-guided biopsy depending on the patient's clinical condition and wishes.
[2023-03-20 20:35] VITALS: BP 149/64; PULSE 97; RESP 18; TEMP 36.9; O2SAT 98
--- NOTE | 2023-03-20 20:46 | ECG_ITS ---
Measurements Intervals [place] Rate: 81 P: 69 MD: 149 QRS: -29 QRSD: 126 T: 26 QT: 383 QTc: 447 Interpretive Statements SINUS RHYTHM RIGHT BUNDLE BRANCH BLOCK CANNOT RULE OUT SEPTAL INFARCT, AGE INDETERMINATE ABNORMAL ECG COMPARED TO ECG 04/23/2022 22:07:51 MYOCARDIAL INFARCT FINDING NOW PRESENT Electronically Signed On 03-20-2023 21:31:11 CDT by Jewel Rangel D.O.
--- NOTE | 2023-03-20 21:07 | ED.GENADULT ---
HPI - General Adult General Chief complaint: Weakness <Viktor Bryant MD - Last Filed: 03/20/23 21:09> Stated complaint: FAINT, WEAKNESS <Viktor Bryant MD - Last Filed: 03/20/23 21:09> Time Seen by Provider: 03/20/23 20:39 <Viktor Bryant MD - Last Filed: 03/20/23 21:09> History of Present Illness HPI narrative: Patient is an 82-year-old female who presents ER due to feeling lightheaded. Occurred just prior to arrival and came by EMS. She felt dizzy like she might pass out. She had no chest pain or chest pressure. No racing of the heart. She reports she has been having burning urination for couple weeks and has been feeling lightheaded when she goes from sitting to standing as well. No fevers or chills or sweats. No abdominal discomfort. Feels well at this time. <Viktor Bryant MD - Last Filed: 03/20/23 21:09> Related Data Home medications: Home Medications Medication Instructions Recorded Confirmed estradiol 0.01% (0.1 mg/gram) 1 applic vaginal WEEKLY 04/22/21 05/05/21 vaginal cream levothyroxine 100 mcg tablet 100 mcg PO DAILY 04/22/21 05/05/21 (Synthroid) loteprednol etabonate 0.5 % eye 1 drp ophthalmic (eye) DAILY 04/22/21 05/05/21 drops,suspension olopatadine 0.1 % eye drops 1 drp ophthalmic (eye) DAILY 04/22/21 05/05/21 pravastatin 40 mg tablet 40 mg PO DAILY 04/22/21 05/05/21 sodium fluoride 1.1 %-potassium 1 applic dental DAILY 04/22/21 05/05/21 nitrate 5 % dental paste lifitegrast 5 % eye drops in a drp 08/25/21 dropperette (Xiid) <Viktor Bryant MD - Last Filed: 03/20/23 21:09> Allergies/adverse reactions: Allergies Allergy/AdvReac Type Severity Reaction Status Date / Time azithromycin Allergy Mild Rash Verified 08/26/21 02:39 Penicillins Allergy Mild Diarrhea Verified 08/26/21 02:39 alendronate sodium Allergy Unknown Verified 04/29/22 17:23 [From Fosamax] clindamycin Allergy Unknown Verified 04/29/22 17:23 <Viktor Bryant MD - Last Filed: 03/20/23 21:09> Review of Systems Review of Systems: All systems reviewed & are unremarkable except as noted in HPI and below <Viktor Bryant MD - Last Filed: 03/20/23 21:09> Constitutional: Constitutional: Denies chills, Denies fatigue and Denies fever(s) <Viktor Bryant MD - Last Filed: 03/20/23 21:09> ENT: Denies nasal congestion and Denies sore throat <Viktor Bryant MD - Last Filed: 03/20/23 21:09> Cardiovascular: Cardiovascular: Denies chest pain, Denies rapid heart rate and Denies radiating jaw, neck or arm pain <Viktor Bryant MD - Last Filed: 03/20/23 21:09> Respiratory: Respiratory: Denies cough and Denies dyspnea <Viktor Bryant MD - Last Filed: 03/20/23 21:09> Gastrointestinal: Gastrointestinal: Denies abdominal pain, Denies nausea and Denies vomiting <Viktor Bryant MD - Last Filed: 03/20/23 21:09> Neurologic: Reports dizziness, Denies syncope, Denies focal weakness and Denies numbness <Viktor Bryant MD - Last Filed: 03/20/23 21:09> [facility] Past Medical History Medical History: Medical History Diverticulosis Hypothyroidism Multiple sclerosis Osteoporosis Sarcoidosis <Viktor Bryant MD - Last Filed: 03/20/23 21:09> Surgical History Surgical History: Surgical History History of appendectomy <Viktor Bryant MD - Last Filed: 03/20/23 21:09> Family History Family History: Family History Father Family history of heart disease in male family member before age 55 Mother Family history of heart disease in male family member before age 55 Other Cerebrovascular accident Diabetes mellitus Hypertension <Viktor Bryant MD - Last Filed: 03/20/23 21:09> Social History Social History: Social History (Reviewed 04/30/22
[2023-03-20] MEDS: SODIUM CHLORIDE 0.9% IV 1,000 ML 999 ML IV CONT (21:13)
[2023-03-20 21:21] LABS: Basophils Absolute Auto 0.1 K/mm3 (0.0-0.1); Basophils Percent Auto 0.7 % (0.2-1.2); Eosinophils Absolute Auto 0.2 K/mm3 (0-0.3); Eosinophils Percent Auto 2.1 % (0-4.4); Hematocrit 46.9 % (37.0-47.0); Hemoglobin 15.2 g/dL (12.0-15.0); Immature Granulocyte Absolute 0.01 K/mm3 (0.00-0.031); Immature Granulocyte Percent A 0.1 % (0-0.5); Lymphocytes Absolute Auto 1.86 K/mm3 (0.9-3.2); Lymphocytes Percent Auto 26.2 % (18.3-44.2); Mean Corpuscular HGB Conc 32.4 g/dl (32-36); Mean Corpuscular Hemoglobin 31.1 pg (26-34); Mean Corpuscular Volume 96.1 fl (80-100); Mean Platelet Volume 11.3 fl (7.4-10.4); Monocytes Absolute Auto 0.6 K/mm3 (0.1-0.6); Monocytes Percent Auto 7.7 % (2.6-8.5); Neutrophils Absolute Auto 4.5 K/mm3 (1.3-6.7); Neutrophils Percent Auto 63.2 % (45.5-73.1); Platelet Count Result 244 k/mm3 (150-375); Red Blood Count 4.88 M/mm3 (4.2-5.4); Red Cell Distribution Width 14.8 % (11.5-14.5); White Blood Count 7.1 K/mm3 (4.5-10.0)
[2023-03-20 21:24] LABS: Appearance Urine Cloudy (Clear); Bacteria Urine None Seen /hpf; Bilirubin Urine Negative (Negative); Blood Urine Negative (Negative); Color Urine Yellow (Yellow); Glucose Urine UA Negative (Negative); Ketones Urine Negative (Negative); Leukocyte Esterase Ur 2+ LEU/UL (Negative); Nitrate Urine Negative (Negative); Non Pathogenic Casts 0-2; Protein Urine 1+ mg/dL (Negative); RBC Urine 0-2 /hpf (0-2); Specific Grav Ur 1.008 (1.001-1.035); Squamous Epithelial Cell Urine Few /hpf (Few); Urobilinogen Urine 0.2 mg/dL (<2.0); pH Urine 7.5 (5.0-9.0)
[2023-03-20 21:30] LABS: Alanine Aminotransferase 109 U/L (6-35); Albumin Level 4.5 g/dL (3.5-5.1); Alkaline Phosphatase 604 U/L (38-126); Anion Gap 6 mmol/L (8-16); Aspartate Amino Transferase 116 U/L (14-36); Bilirubin,Total 0.6 mg/dL (0.2-1.3); Blood Urea Nitrogen 23 mg/dL (7-17); Calcium 9.8 mg/dL (8.4-10.2); Carbon Dioxide 31 mmol/L (22-30); Chloride 102 mmol/L (98-107); Estimated CRCL calculation 30 ml/min; Estimated Glomerular Filt Rate 60; Glucose 153 mg/dL (65-110); Potassium 3.7 mmol/L (3.4-5.0); Sodium 139 mmol/L (137-145)
[2023-03-20 21:32] LABS: Add Urine Microscopic? YES
--- NOTE | 2023-03-20 22:05 | PC.NURSE ---
pt off the floor to CT @3089
[2023-03-20 22:09] VITALS: BP 106/84; PULSE 92
[2023-03-20 22:10] VITALS: BP 129/76; BP 131/55; PULSE 100; PULSE 119
--- NOTE | 2023-03-20 23:17 | PC.NURSE ---
pt care transferred to DARINEL Mohan. all questions answered
== END 2023-03-21 00:12 | disposition home or self-care (01) ==
PROVIDERS: Emergency Medicine; Emergency Provider Emergency Medicine; PCP Internal Medicine
DX: R42 Dizziness and giddiness (principal); R91.1 Solitary pulmonary nodule; G35 Multiple sclerosis; E03.9 Hypothyroidism, unspecified; M81.0 Age-related osteoporosis without current pathological fracture; D86.9 Sarcoidosis, unspecified; F17.210 Nicotine dependence, cigarettes, uncomplicated; R82.998 Other abnormal findings in urine; I45.10 Unspecified right bundle-branch block; R94.31 Abnormal electrocardiogram [ECG] [EKG]; K20.90 Esophagitis, unspecified without bleeding; K29.70 Gastritis, unspecified, without bleeding; K76.0 Fatty (change of) liver, not elsewhere classified; K52.9 Noninfective gastroenteritis and colitis, unspecified
CPT/HCPCS: 36415; 71046; 71260; 74177; 80053; 81001; 85025; 87086; 87088; 93005; 96360; 99284; J7030; Q9967

== ENCOUNTER 2025-05-05 13:07 | Emergency (ER) | payer MEDICARE, SELFPAY ==
--- NOTE | ~2025-05-05 | XR_ITS ---
EXAMINATION: XR wrist LT min 3V DATE: 05/05/2025 13:35 INDICATION: Left wrist and distal forearm pain. TECHNIQUE: Posteroanterior, ulnar deviation, oblique, and lateral views of the left wrist were obtained. COMPARISON: 08/25/2021 FINDINGS: Diffuse osteopenia. Bone alignment is normal. Polyarticular osteoarthritis, moderate severity at the triscaphe joint and mild at many of the remaining joints in the visualized left hand and wrist. IMPRESSION: 1. No acute osseous abnormality. Reviewed, dictated and finalized at location A.
--- NOTE | ~2025-05-05 | XR_ITS ---
EXAMINATION: XR humerus LT DATE: 05/05/2025 13:35 INDICATION: Left mid to upper arm pain TECHNIQUE: AP and lateral views of the left humerus were obtained. COMPARISON: None FINDINGS: Alignment is normal. No fracture. Mild acromioclavicular osteoarthritis. Soft tissues are unremarkable. Streaky opacity left lower lung zone which could represent atelectasis or pneumonia. IMPRESSION: 1. No fracture or malalignment. Reviewed, dictated and finalized at location A.
--- NOTE | 2025-05-05 13:09 | ED.UPPEXIN ---
HPI - Extremity Injury (Upper) General Chief Complaint: Extremity Problem,Nontraumatic Stated Complaint: arm pain Time Seen by Provider: 05/05/25 13:09 Source: patient Mode of arrival: ambulatory Limitations: no limitations History of Present Illness HPI narrative: Alejandra is a 84 year old female patient presenting to the clinic today with c/o arm pain x 2-3 days. She reports she fell 4 years ago and injured her arm but she has had no recent injury. States she is having pain to the distal forearm, wrist, and mid humerus. Pain is sharp in nature and nonradiating. Rates pain 6/10. States she takes a daily Tylenol with codeine for pain. History of CVA, sarcoidosis, and multiple sclerosis. Related Data Home Medications ?Medication ?Instructions ?Recorded ?Confirmed ?Last Taken ?Type estradiol 0.01% (0.1 mg/gram) 1 applic vaginal WEEKLY 04/22/21 05/05/21 Unknown History vaginal cream levothyroxine 100 mcg tablet 100 mcg PO DAILY 04/22/21 05/05/21 Unknown History (Synthroid) loteprednol etabonate 0.5 % eye 1 drp ophthalmic (eye) DAILY 04/22/21 05/05/21 Unknown History drops,suspension olopatadine 0.1 % eye drops 1 drp ophthalmic (eye) DAILY 04/22/21 05/05/21 Unknown History pravastatin 40 mg tablet 40 mg PO DAILY 04/22/21 05/05/21 Unknown History sodium fluoride 1.1 %-potassium 1 applic dental DAILY 04/22/21 05/05/21 Unknown History nitrate 5 % dental paste lifitegrast 5 % eye drops in a drp 08/25/21 Unknown History dropperette (Xiidra) acetaminophen 300 mg-codeine 30 mg tablet 05/05/25 Unknown History tablet Allergies Allergy/AdvReac Type Severity Reaction Status Date / Time azithromycin Allergy Mild Rash Verified 05/05/25 13:13 Penicillins Allergy Mild Diarrhea Verified 05/05/25 13:13 alendronate sodium (From Allergy Unknown Verified 05/05/25 13:13 Fosamax) clindamycin Allergy Unknown Verified 05/05/25 13:13 Review of Systems Review of Systems: Pertinent positives per HPI. Patient denies any fever, chills, rash, headache, visual changes, dizziness, cough, runny nose, sore throat, shortness of breath, chest pain, palpitations, nausea, vomiting, diarrhea, constipation, abdominal pain, or any urinary issues. [facility] Past Medical History Medical History Sarcoidosis Hypothyroidism Multiple sclerosis Diverticulosis Osteoporosis Surgical History Surgical History History of appendectomy Family History Family History Father Family history of heart disease in male family member before age 55 Mother Family history of heart disease in male family member before age 55 Other Cerebrovascular accident Diabetes mellitus Hypertension Social History Social History Years smoked: 50 Smoking status: Current every day smoker Tobacco type: cigarettes Alcohol intake: never Substance use: never Substance use type: does not use Living arrangements: with family Spiritual care concerns: No Comments At the time of my signature, I reviewed and agree with the nursing past medical, surgical, social, and family history. There is no relevant family history pertinent to the patient complaint. Exam Narrative: General: Well-developed, well nourished, in no apparent distress Head: Normocephalic, atraumatic. Cardio: Regular rate and rhythm, s1 and s2 normal, no murmur appreciated. Resp: Clear to auscultation bilaterally, no rhonchi, rales, wheezing or rubs. Musculoskeletal: No deformity, tender to palpation over the left mid humerus, distal forearm, and wrist, grossly normal range of motion, muscle strength strong and equal, peripheral pulse strong, no edema, no cyanosis, normal gait and station Course Course Emergency Course: Portions of this record may have been created with voice recognition software. Level of Care: Express Care Visit Vital Signs Vital signs: Vital Signs Temperature 36.6 C 05/05/25 13:17 Pulse Rate 70 05/05/25 13:17 Respiratory Rate 20 05/05/25 13:17 Blood Pressure 145/56 H 05/05/25 13:17 Pulse Oximetry 96 05/05/25 13:17 Oxygen Delivery Room Air 05/05/25 13:17 Temperature 36.6 C 05/05/25 13:17 Pulse Rate 70 05/05/25 13:17 Respiratory Rate 20 05/05/25 13:17 Blood Pressure 145/56 H 05/05/25 13:17 Pulse Oximetry 96 05/05/25 13:17 Oxygen Delivery Room Air 05/05/25 13:17 Vital signs reviewed MDM - Extremity Injury (Upper) MDM Narrative Medical decision making narrative: At the time of visit patient is resting comfortably on the exam table. Patient appears to be nontoxic. C/o arm pain x 2-3 days. She reports she fell 4 years ago and injured her arm but she has had no recent injury. States she is having pain to the distal forearm, wrist, and mid humerus. Pain is sharp in nature and nonradiating. Rates pain 6/10. States she takes a daily Tylenol with codeine for pain. History of CVA, sarcoidosis, and multiple sclerosis. X-ray of the wrist and humerus was ordered Diagnostics: X-ray of the wrist and humerus are negative for any acute fracture or malalignment. Plan: I suspect patient has acute humerus pain, forearm pain, and wrist pain. I feel like this is likely inflammatory process/arthralgia type pain. Prescription for Medrol Dosepak was sent to the pharmacy. Supportive measures were discussed with the patient and they voiced understanding discharge instructions and agrees to treatment plan. Return precautions reviewed Differential Diagnosis Differential diagnosis: Likely sprain and strain of wrist, fracture of wrist, fracture of humerus and other (Arthritis, soft tissue injury) Imaging Data Radiologist's impression: ITS Impressions Humerus X-Ray 05/05/25 14:03 IMPRESSION: 1. No fracture or malalignment. Wrist X-Ray 05/05/25 14:19 IMPRESSION: 1. No acute osseous abnormality. Discharge Plan Discharge Clinical Impression: Acute pain of left wrist, Pain of left humerus, Left forearm pain Patient Disposition: Home Condition: Stable Instructions: Antibiotic Form, Arm Pain (ED) Additional Instructions: X-rays are negative for any acute fracture or malalignment. Rest, ice, and elevate Tylenol/motrin for pain as discussed. Take Medrol dose pack as prescribed Gradually bear weight No running or sports until healed. Follow up with your PCP if symptoms persist more than 1 week. Patient Language: Kiswahili Prescriptions: New methylprednisolone [Medrol (Moody)] 4 mg tablets,dose pack See Rx Instructions PO .COMPLEX Qty: 21 0RF Rx Instructions: orally per package directions No Action Xiidra 5 % dropperette acetaminophen-codeine 300-30 mg tablet pravastatin 40 mg tablet 40 mg PO DAILY levothyroxine [Synthroid] 100 mcg tablet 100 mcg PO DAILY olopatadine 0.1 % drops 1 drp ophthalmic (eye) DAILY loteprednol etabonate 0.5 % drops,suspension 1 drp ophthalmic (eye) DAILY estradiol 0.01 % (0.1 mg/gram) cream 1 applic VAGINAL WEEKLY sodium fluoride-pot nitrate 1.1-5 % paste 1 applic dental DAILY aspirin [Children's Aspirin] 81 mg Tablet,Chewable 81 mg PO DAILY@0800 Qty: 30 0RF lisinopril 5 mg Tablet 5 mg PO QAM Qty: 30 0RF Thera M Plus (ferrous fumarat) 9 mg iron-400 mcg Tablet 1 tablet PO QAM Qty: 30 0RF Follow-up/Referrals: Stan,Tony Billy MD [Primary Care Provider] Time of Disposition: 14:10 Quality NIHSS Nursing Documentation ED NIHSS nursing documentation: reviewed/agree
[2025-05-05 13:17] VITALS: BP 145/56; PULSE 70; RESP 20; TEMP 36.6; O2SAT 96
== END 2025-05-05 14:15 | disposition home or self-care (01) ==
PROVIDERS: Emergency Provider Nurse Practitioner Family; PCP Internal Medicine
DX: M25.532 Pain in left wrist (principal); M79.622 Pain in left upper arm; M79.632 Pain in left forearm; F17.210 Nicotine dependence, cigarettes, uncomplicated; G35 Multiple sclerosis; D86.9 Sarcoidosis, unspecified; E03.9 Hypothyroidism, unspecified; M81.0 Age-related osteoporosis without current pathological fracture; Z86.73 Personal history of transient ischemic attack (TIA), and cerebral infarction without residual deficits
CPT/HCPCS: 73060; 73110; 99214; G0463